=== PATIENT | female | born 1950 | race Caucasian/White ===

== ENCOUNTER 2021-12-29 19:12 | Emergency (ER) | payer MEDICARE, OTHER, SELFPAY ==
--- NOTE | 2021-12-29 | ECG_ITS ---
Test Reason : cp Blood Pressure : / mmHG Vent. Rate : 088 BPM Atrial Rate : 088 BPM P-R Int : 162 ms QRS Dur : 074 ms QT Int : 374 ms P-R-T Axes : 056 012 074 degrees QTc Int : 452 ms Normal sinus rhythm Normal ECG When compared with ECG of 19-DEC-2011 12:07, No significant change was found Referred By: Generic ED Physician Electronically Signed By:EMMANUELLE VALADEZ MD
--- NOTE | ~2021-12-29 | XR_ITS ---
EXAMINATION: XR CHEST CLINICAL INFORMATION: Chest pain COMPARISON: None TECHNIQUE: Frontal view of the chest was obtained. FINDINGS: The heart and pulmonary vessels appear normal. The aorta is unfolded. Left basilar atelectasis is present. No pleural effusions. Density overlying the right first anterior lateral rib probably a compilation of structures but a tiny mass cannot be excluded. XR/XR chest 1V IMPRESSION: No acute intrathoracic disease. Left basilar atelectasis. Question opacity right upper lobe. An apical lordotic film would help clarify.
--- NOTE | ~2021-12-29 | CT_ITS ---
EXAMINATION: CT ANGIOGRAM CHEST CLINICAL INFORMATION: Chest pain radiating to back, rule out dissection COMPARISON: Chest x-ray 12/29/2021 TECHNIQUE: Multiple axial images were obtained through the chest after the administration of 70 mL of Omnipaque 350 intravenous contrast. Extensive vascular post-processing including two-dimensional and three-dimensional reformatted images were created and reviewed on an independent workstation. This CT examination was performed using dose optimization techniques as appropriate, variously including the following: *Automated exposure control *Adjustment of mA and/or kV according to patient size (this includes techniques or standardized protocols for targeted exams where dose is matched to indication/reason for exam; i.e. extremities or head) *Use of iterative reconstruction technique DLP: 247 mGy-cm FINDINGS: No evidence of aortic dissection. There is atherosclerotic plaque and calcification along the aorta. Aorta appears normal in caliber. The main pulmonary artery appears dilated, which can be seen with pulmonary artery hypertension. No central or segmental pulmonary embolus is seen. Curvilinear opacities in the bilateral lower lobes favor atelectasis or scarring. No additional consolidation is seen. No pneumothorax or pleural effusion. The visualized thyroid gland is unremarkable. There are subcentimeter mediastinal lymph nodes within the range of normal variation. Cardiac size is within normal limits; no pericardial effusion. Coronary artery calcifications are present. No axillary lymphadenopathy is present. Visualized portions of the upper abdomen are within normal limits. Scattered degenerative endplate changes are present in the spine. CT/CT angio chest aorta IMPRESSION: 1. No evidence of aortic dissection. 2. Dilated main pulmonary artery, which can be seen with pulmonary artery hypertension. 3. Coronary artery calcifications. Correlation with cardiac risk factors is recommended. 4. Curvilinear bibasilar atelectasis versus scarring. Fleischner guidelines were followed.
[2021-12-29 19:46] LABS: MANUAL DIFF FLAG NO
[2021-12-29 19:48] LABS: Basophils Absolute Auto 0.1 X10*3/uL (0.0-0.2); Basophils Percent Auto 0.6 % (0-2); Eosinophils Absolute Auto 0.2 X10*3/uL (0.0-0.4); Eosinophils Percent Auto 2.3 % (0-4); Hematocrit 38.4 % (37.0-47.0); Hemoglobin 12.7 g/dl (12.0-16.0); Imm Gran Abs Auto 0.03 X10*3/uL (0.00-0.03); Imm Gran Pct Auto 0.3 % (0.0-0.4); Lymphocytes Absolute Auto 1.9 X10*3/uL (1.2-4.9); Mean Corpuscular HGB Conc 33.1 g/dl (31.0-35.0); Mean Corpuscular Hemoglobin 29.6 pg (27.0-33.0); Mean Corpuscular Volume 89.5 fL (80.0-98.0); Mean Platelet Volume 9.6 fL (9.4-12.3); Monocytes Absolute Auto 0.8 X10*3/uL (0.1-1.2); Monocytes Percent Auto 9.8 % (2-11); Neutrophils Absolute Auto 5.6 x10*3/uL (2.0-8.3); Platelet Count 235 X10*3/uL (160-400); Red Blood Count 4.29 X10*6/uL (4.20-5.50); Red Cell Distribution Width 13.5 % (11.0-16.0); White Blood Count 8.6 X10*3/uL (4.8-10.8)
[2021-12-29 20:02] LABS: Alanine Aminotransferase 14 U/L (0-31); Albumin Level 4.5 g/dL (3.5-5.0); Alkaline Phosphatase 61 U/L (39-117); Anion Gap 12 (12-20); Aspartate Amino Transferase 15 U/L (5-31); Bilirubin Total 0.2 mg/dL (0.0-1.0); Blood Urea Nitrogen 18 mg/dL (9-16); Calcium 9.7 mg/dL (8.4-10.2); Carbon Dioxide 30 mmol/L (22-29); Chloride 101 mmol/L (96-108); Estimated Glomerular Filt Rate 53; Glucose Random 125 mg/dL (60-115); Potassium 3.9 mmol/L (3.3-5.1); Sodium 139 mmol/L (135-145); Total Protein 7.8 g/dL (6.5-8.0)
[2021-12-29 20:10] LABS: Troponin-I High Sensitivity 3.8 ng/L (<3.5-17.0)
[2021-12-29 20:56] VITALS: BP 188/75; PULSE 89; RESP 19; TEMP 37.1; O2SAT 94; BMI 24.2
[2021-12-30 01:04] VITALS: BP 190/85; PULSE 85; RESP 16; TEMP 36.7; O2SAT 97
[2021-12-30 02:00] VITALS: BP 159/70; PULSE 85; RESP 16; TEMP 36.7; O2SAT 97
[2021-12-30 02:17] LABS: Troponin-I High Sensitivity 4.8 ng/L (<3.5-17.0)
--- NOTE | 2021-12-30 03:13 | ECG_ITS ---
Test Reason : CHEST PAIN Blood Pressure : / mmHG Vent. Rate : 085 BPM Atrial Rate : 085 BPM P-R Int : 166 ms QRS Dur : 074 ms QT Int : 384 ms P-R-T Axes : 067 021 062 degrees QTc Int : 456 ms Sinus rhythm with frequent Premature ventricular complexes and Fusion complexes Otherwise normal ECG When compared with ECG of 29-DEC-2021 19:16, Fusion complexes are now Present Premature ventricular complexes are now Present Referred By: Generic ED Physician Electronically Signed By:EMMANUELLE VALADEZ MD
--- NOTE | 2021-12-30 03:42 | ED_ITS ---
HPI - Chest Pain General Chief Complaint: Chest Pain Stated Complaint: Chest Pain, Pt believes to be a heart attack Time Seen by Provider: 12/30/21 00:41 Source: patient and family (, Esteban) Mode of arrival: ambulatory Limitations: no limitations History of Present Illness HPI narrative: 71-year-old female who presents emergency department for evaluation of chest pain. She states that yesterday at around 15:00 hours while she was shopping she developed a sharp pain that wrapped around her chest into her back. The pain came on suddenly. She states that since the onset of the pain the pain is been constant but waxes and wanes in intensity. She states the pain is a spasm and contraction like pain. The pain is 10/10 at its worst. The pain does radiate to her back, shoulder blades and neck. She states that she had a lot of gas since the onset of the pain and she has been burping more than usual. She states that over the past 3 days she has been feeling fatigued is been having body aches. She denied fever, chills, rhinorrhea, cough, shortness of breath, dyspnea on exertion, nausea, vomiting, diarrhea. She states that she has abdominal pain but this is secondary to her IBS. She has had frequency with no dysuria. She has not had any dark tarry stools or black stools. Related Data Allergies Allergy/AdvReac Type Severity Reaction Status Date / Time atorvastatin [ATORVASTATIN] Allergy Severe THROAT Unverified 06/13/20 14:35 SWELLING, WHEEZING Penicillins [PENICILLINS] Allergy Severe THROAT Unverified 06/13/20 14:35 SWELLING Sulfa (Sulfonamide Allergy Severe THROAT Unverified 06/13/20 14:35 Antibiotics) SWELLING, [SULFA(SULFONAMIDE WHEEZE ANTIBIOTICS)] penicillin V Allergy Unknown Unverified 11/21/13 00:00 rosuvastatin [Crestor] Allergy Unknown Verified 10/11/13 00:00 SEAFOOD Allergy Severe WHEEZE, Uncoded 06/13/20 14:35 DIARRHEA fish/seafood Allergy Unknown wheezing, Uncoded 10/11/13 00:00 diarrhea lipitor Allergy Unknown Uncoded 11/21/13 00:00 Review of Systems Review of Systems: Yes all other systems are reviewed and are negative PMFSH Past Medical History [facility] Narrative: Past medical history: Hypertension, hyperlipidemia, irritable bowel syndrome, C diff colitis, diverticulitis. Past surgical history: . Social history: The patient is a former smoker, she stop smoking 14 years prior. She has a greater than 35 pack-year history of smoking. She denies alcohol use. He denies drug use. Social History Social History Patient Tobacco Use Status: Never used Tobacco Use of substances other than those prescribed or required for medical reasons: No Advance Directives: No Physical Exam Vital Signs: Vital Signs: Last Vital Signs Temp 98.0 F 12/30/21 02:00 Pulse 88 12/30/21 04:11 Resp 12 12/30/21 04:11 BP 194/73 H 12/30/21 04:11 Pulse Ox 97 12/30/21 04:11 BMI result Body Mass Index 24.2 Const: Other: Awake, alert, female patient, very pleasant cooperative, answers all questions appropriately, does not appear to be in distress despite having 10/10 chest pain. HEENT: Head: Yes normal to inspection, Yes normocephalic and Yes atraumatic Ears: external ears normal General nose exam: Normal external nose present Face and sinus: Yes normal facial exam Mouth: Normal oral and palatal mucosa present Throat: Yes posterior oropharynx normal Eyes: General: appearance normal, both eyes and all related structures Pupils: Equal, round and reactive pupils present Neck: Neck: Yes normal visual inspection, Yes no lymphadenopathy, Yes trachea midline and Yes supple Chest: Chest palpation & inspection: normal inspection of the chest and tende rness (Moderate to severe anterior wall tenderness) Resp: Effort & Inspection: normal respiratory effort and able to speak in complete sentences Auscultation: clear to auscultation bilaterally Cardio: Rate: regular rate Rhythm: regular rhythm Heart sounds: S1 normal heart sound present, S2 normal heart sound present and no murmurs GI: Inspection: Yes normal to inspection Palpation (GI): Soft to palpation, nontender and no guarding Auscultation: normal bowel sounds : General: Yes no CVA tenderness Back/Spine/Pelvis: Back: no CVA tenderness Skin: General skin exam: no rashes or lesions noted Neuro: Cranial nerves: Yes CN's II-XII intact bilaterally and Yes Equal, round and reactive pupils present Cognition (Neuro): normal cognition Motor exam (neuro): 5/5 motor strength present throughout Extrem: General: Yes normal to inspection Psych: Appearance: grossly normal Speech and movement: Normal speech and movement present Affect: normal affect Attitude: cooperative Thought process: Normal thought process present Thought content: Normal thought content present Course Course Course Narrative: 71-year-old female who presents emergency department for evaluation of sudden onset bandlike chest pain that began at 15:00 hours while she was shopping. The pain is been constant but waxing and waning intensity is 10/10 at its worse and is 10 of time at the time my evaluation. Vital signs did reveal elevated blood pressure of 188/75 otherwise were unremarkable. Physical examination did re veal significant anterior wall tenderness otherwise was unremarkable. Laboratory evaluation: CBC was normal. CMP was normal. First troponin was 3.8. 3 hour troponin was 4.8. Radiology evaluation: Chest x-ray revealed no acute process. 12 EKG: Sinus rhythm rate of 85, frequent PVCs, normal DC interval, QRS interval and QTC interval, no ST segment elevation, no ST segment depression. Given the patient's pain that radiates to her back, I am concerned that she might have an aortic dissection therefore a CT aortic angiogram was ordered. Patient's pain was treated with Toradol 15 mg IV a and Zofran 4 mg IV. She was also ordered to get normal saline x1 L. 0545: The patient feels significantly better after receiving the IV Toradol she states that her pain is resolved. The CT angiogram of aorta revealed no dissection. The patient most likely has acute costochondritis I did discuss t his with her. Advised to take ibuprofen and Tylenol for the pain She was discharged home. MDM - Chest Pain Lab Data Result diagrams: 12/29/21 19:36 12/29/21 19:36 Labs: Lab Results 12/29/21 12/29/21 12/29/21 Range/Units 19:36 19:36 19:36 WBC 8.6 (4.8-10.8) X10*3/uL RBC 4.29 (4.20-5.50) X10*6/uL Hgb 12.7 (12.0-16.0) g/dl Hct 38.4 (37.0-47.0) % MCV 89.5 (80.0-98.0) fL MCH 29.6 (27.0-33.0) pg MCHC 33.1 (31.0-35.0) g/dl RDW 13.5 (11.0-16.0) % Plt Count 235 (160-400) X10*3/uL MPV 9.6 (9.4-12.3) fL Immature Gran % (Auto) 0.3 (0.0-0.4) % Neut % (Auto) 65.0 (45-73) % Lymph % (Auto) 22.0 (20-40) % Kay % (Auto) 9.8 (2-11) % Eos % (Auto) 2.3 (0-4) % Baso % (Auto) 0.6 (0-2) % Lymph # (Auto) 1.9 (1.2-4.9) X10*3/uL Kay # (Auto) 0.8 (0.1-1.2) X10*3/uL Eos # (Auto) 0.2 (0.0-0.4) X10*3/uL Baso # (Auto) 0.1 (0.0-0.2) X10*3/uL Abs Immat Gran (auto) 0.03 (0.00-0.03) X10*3/uL Absolute Neuts (auto) 5.6 (2.0-8.3) x10*3/uL Absolute Nucleated RBC 0.000 (0.0-0.012) X10*3/uL Nucleated RBC % (auto) 0.0 (0.0-0.2) /100WBC Sodium 139 (135-145) mmol/L Potassium 3.9 (3.3-5.1) mmol/L Chloride 101 (96-108) mmol/L Carbon Dioxide 30 H (22-29) mmol/L Anion Gap 12 (12-20) BUN 18 H (9-16) mg/dL Creatinine 1.02 (0.5-1.4) mg/dL Estim Creat Clear Calc TNP Estimated GFR 53 Random Glucose 125 H (60-115) mg/dL Calcium 9.7 (8.4-10.2) mg/dL Total Bilirubin 0.2 (0.0-1.0) mg/dL AST 15 (5-31) U/L ALT 14 (0-31) U/L Alkaline Phosphatase 61 (39-117) U/L Troponin I High Sens 3.8 (<3.5-17.0) ng/L Total Protein 7.8 (6.5-8.0) g/dL Albumin 4.5 (3.5-5.0) g/dL Urine Color Urine Appearance Urine pH (5.0-8.0) Ur Specific [place] (1.005-1.025) Urine Protein (NEG-TRACE) MG/DL Urine Glucose (UA) (NEG) MG/DL Urine Ketones (NEG) MG/DL Urine Blood (NEG) Urine Nitrite (NEG) Ur Leukocyte Esterase (NEG) Urine RBC (0) /HPF Urine WBC (0-4) /HPF Ur Squamous Epith Cells /LPF Urine Bacteria /LPF Urine Mucus /LPF 12/30/21 12/30/21 Range/Units 01:52 04:03 WBC (4.8-10.8) X10*3/uL RBC (4.20-5.50) X10*6/uL Hgb (12.0-16.0) g/dl Hct (37.0-47.0) % MCV (80.0-98.0) fL MCH (27.0-33.0) pg MCHC (31.0-35.0) g/dl RDW (11.0-16.0) % Plt Count (160-400) X10*3/uL MPV (9.4-12.3) fL Immature Gran % (Auto) (0.0-0.4) % Neut % (Auto) (45-73) % Lymph % (Auto) (20-40) % Kay % (Auto) (2-11) % Eos % (Auto) (0-4) % Baso % (Auto) (0-2) % Lymph # (Auto) (1.2-4.9) X10*3/uL Kay # (Auto) (0.1-1.2) X10*3/uL Eos # (Auto) (0.0-0.4) X10*3/uL Baso # (Auto) (0.0-0.2) X10*3/uL Abs Immat Gran (auto) (0.00-0.03) X10*3/uL Absolute Neuts (auto) (2.0-8.3) x10*3/uL Absolute Nucleated RBC (0.0-0.012) X10*3/uL Nucleated RBC % (auto) (0.0-0.2) /100WBC Sodium (135-145) mmol/L Potassium (3.3-5.1) mmol/L Chloride (96-108) mmol/L Carbon Dioxide (22-29) mmol/L Anion Gap (12-20) BUN (9-16) mg/dL Creatinine (0.5-1.4) mg/dL Estim Creat Clear Calc Estimated GFR Random Glucose (60-115) mg/dL Calcium (8.4-10.2) mg/dL Total Bilirubin (0.0-1.0) mg/dL AST (5-31) U/L ALT (0-31) U/L Alkaline Phosphatase (39-117) U/L Troponin I High Sens 4.8 (<3.5-17.0) ng/L Total Protein (6.5-8.0) g/dL Albumin (3.5-5.0) g/dL Urine Color STRAW Urine Appearance CLEAR Urine pH 7.5 (5.0-8.0) Ur Specific [place] 1.010 (1.005-1.025) Urine Protein NEG (NEG-TRACE) MG/DL Urine Glucose (UA) NEG (NEG) MG/DL Urine Ketones NEG (NEG) MG/DL Urine Blood 1+ H (NEG) Urine Nitrite NEG (NEG) Ur Leukocyte Esterase NEG (NEG) Urine RBC 5-9 H (0) /HPF Urine WBC 1-4 (0-4) /HPF Ur Squamous Epith Cells 1+ /LPF Urine Bacteria TRACE /LPF Urine Mucus TRACE /LPF Discharge Plan Discharge Clinical Impression: Acute costochondritis Patient Disposition: Home, Self-Care Instructions: Costochondritis (ED) Additional Instructions: Your laboratory evaluation was normal. Your chest x-ray was unremarkable. Your CT scan of the aorta revealed no aortic dissection he had no other significant causes for your pain. Your pain is consistent with inflammation of the chest joints (costochondritis). Take ibuprofen 200 mg pills, 2 pills every 6 hours as needed for pain for 3 days Take Tylenol (acetaminophen) 500 mg pills, 2 pills every 4 to 6 hours as needed for pain. Follow-up with your doctor in 2 days. Please return to the emergency department if your symptoms get worse or if you develop any symptoms that are concerning to you.
[2021-12-30 04:10] LABS: Appearance Urine CLEAR; Color Urine STRAW; Glucose Urine UA NEG (NEG); Leukocyte Esterase Urine NEG (NEG); Nitrite Urine NEG (NEG); PH 7.5 (5.0-8.0); UACC Culture Trigger NO; Urine Blood 1+ (NEG); Urine Ketones NEG (NEG); Urine Protein NEG (NEG-TRACE)
[2021-12-30 04:11] VITALS: BP 194/73; PULSE 88; RESP 12; O2SAT 97
[2021-12-30 04:23] LABS: Bacteria Urine TRACE /LPF; Mucus Urine TRACE /LPF; Squamous Epithelial Cell Urine 1+ /LPF
[2021-12-30] MEDS: iohexoL 350 MG/ML 100 ML INFUS..BTL 70 ML IV (04:28)
[2021-12-30] MEDS: 0.9 % Sodium Chloride 1,000 ML 999 ML IV (04:32)
[2021-12-30] MEDS: ondansetron HCL 4 MG/2 ML VIAL IVPUSH (04:32)
[2021-12-30] MEDS: Ketorolac Tromethamine 15 MG/ML VIAL IVPUSH (04:32)
--- NOTE | 2021-12-30 05:10 | PC.NURSE ---
Iv placed, EKG taken and labs collected. pt able to walk with a steady gait. no dizziness or lightheadedness.
== END 2021-12-30 06:03 | disposition home or self-care (01) ==
PROVIDERS: Physician Assistant Medical; Emergency Provider Emergency Medicine Emergency Medical Services
DX: M94.0 Chondrocostal junction syndrome [Tietze] (principal)
CPT/HCPCS: 36415; 71045; 71275; 80053; 81001; 84484; 85025; 93005; 96361; 96374; 96375; 99284; 99285; J1885; J2405; Q9967